=== PATIENT | female | born 1985 | race Caucasian/White ===

== ENCOUNTER → 2019-03-27 15:26 | Outpatient (CLI) | payer OTHER, SELFPAY ==
--- NOTE | 2019-03-27 15:00 | EMB_PTH ---
PATIENT: AMY VERDE LOC: [facility] U#:[id number] AGE/SX: 39/F ROOM: RE03/27/[address]: Bethany Cordoba CNM : 1985 BED: DIS: SPEC #: [id number] RECD: 03/27/19 17:52 STATUS: EMERITA LOKESH #: [id number] SHARATH: 03/27/19 15:[address]: Bethany Cordoba DEPT: SURGICAL PATHOLOGY RECD BY: Sherwin Elizabeth Tissues: Endometrium, NOS Procedures: Surgery Specimen Level IV HEADER OPERATION: Endometrial biopsy PRE-OP DIAGNOSIS: N93.9 TISSUE SUBMITTED: Endometrial biopsy MICROSCOPIC DIAGNOSIS Endometrium, biopsy: Simple hyperplasia without atypia. AM:aleksandar 03/29/19 MICROSCOPIC DESCRIPTION Slides are reviewed. GROSS DESCRIPTION Received in fixative is one container labeled with the patient's name and designated EM biopsy. The specimen consists of multiple fragments of hemorrhagic soft tissue mixed with mucoid tissue that in aggregate measure 4 x 3 x 0.3 cm. The entire specimen is submitted in two cassettes. / SJ:rg 03/28/19 TC:5 CPT: 76141
[2019-03-27 17:58] LABS: Hematocrit 40.4 % (37-47); Hemoglobin 12.4 g/dL (12.0-15.0); Mean Corp Hgb Conc 30.7 g/dL (32-36); Mean Corpuscular Hgb 25.5 pg (27.0-32.0); Mean Platelet Vol. 10.7 fl (6.2-12.0); Platelet Count 308 K/mm3 (150-450); RBC Distribution Width CV 15.9 % (11.6-14.6); RBC Distribution Width SD 47.8 fl (35.1-43.9); Red Blood Count 4.87 M/mm3 (4.2-5.4); White Blood Count 9.4 K/mm3 (4.4-11.0)
[2019-03-28 11:31] LABS: T4 Free Direct 0.95 ng/dL (0.76-1.46)
== END ==
PROVIDERS: Visit Provider Advanced Practice Midwife
DX: N93.9 Abnormal uterine and vaginal bleeding, unspecified (principal); E03.9 Hypothyroidism, unspecified
CPT/HCPCS: 36415; 84439; 84443; 84481; 85027; 88305

== ENCOUNTER 2019-09-23 08:29 | Day surgery (SDC) | payer OTHER, SELFPAY ==
--- NOTE | 2019-09-19 16:30 | EKG12_ITS ---
Test Reason : PRE-OPERATIVE Blood Pressure : / mmHG Vent. Rate : 065 BPM Atrial Rate : 065 BPM P-R Int : 118 ms QRS Dur : 090 ms QT Int : 394 ms P-R-T Axes : 020 028 014 degrees QTc Int : 409 ms Normal sinus rhythm with sinus arrhythmia Normal ECG Confirmed by CATRACHITA MAHMOOD, SALVADOR ([id number]), department editor GLORIA GUADARRAMA ([id number]) on 09/23/2019 11:02:58 AM Referred By: Monty Jim Confirmed By:SALVADOR DOMÍNGUEZ MD
[2019-09-19 16:52] LABS: Hematocrit 42.9 % (37-47); Hemoglobin 13.4 g/dL (12.0-15.0); Mean Corp Hgb Conc 31.2 g/dL (32-36); Mean Corpuscular Hgb 26.4 pg (27.0-32.0); Mean Corpuscular Volume 84.6 fL (81-99); Mean Platelet Vol. 10.5 fl (6.2-12.0); Platelet Count 304 K/mm3 (150-450); RBC Distribution Width CV 16.8 % (11.6-14.6); RBC Distribution Width SD 51.6 fl (35.1-43.9); Red Blood Count 5.07 M/mm3 (4.2-5.4); White Blood Count 8.8 K/mm3 (4.4-11.0)
[2019-09-19 18:04] LABS: Creatinine, Serum 0.77 mg/dL (0.55-1.02); EST Glomerular Filtration Rate 90 mL/min (>60); Est Glom Filt Rate - Afr Amer 109 mL/min (>60); Thyroid Stim Hormone (TSH) 4.82 uIU/mL (0.358-3.74)
[2019-09-20 09:29] LABS: Anion Gap 6 (5-15); BUN 13 mg/dL (7-18); BUN/Creat Ratio 16.9 RATIO (10-20); Calcium,Total 8.8 mg/dL (8.5-10.1); Chloride 112 mmol/L (98-107); Glucose 94 mg/dL (74-106); Sodium Level 142 mmol/L (136-145)
[2019-09-20 16:24] LABS: Free T3 2.6 pg/mL (2.18-3.98); T4 Free Direct 1.25 ng/dL (0.76-1.46)
--- NOTE | 2019-09-22 21:31 | PCM.HP.BLA ---
History and Physical Date of Admission: 09/23/19 Surgical History and Physical Date: 09/22/2019 Name: JENNY MOLINA Age: 33 Date of : 1985 Jenny Molina, a 33 year old female 2 0 0 0 2, presents for RAVH/BS on September 23, 2019 at 11:00. -- Abnormal Uterine Bleeding; Simple EM Hyperplasia -- Long, heavy menses which have been getting worse. Some last for weeks with one running into the next one. Hx of DVT likely from OCPs. Menorrhagia which began months ago. and has been present months. It is located in the Uterus. Jenny characterizes it to be to the back. Severity is increasing; Additional comments are: EMBx shows simple EM hyperplasia; unable to take hormones as had DVT from OCP; pelvic u/s normal. MEDICATIONS HISTORY: Current medications prescribed by our practice are: 1. Synthroid 100 mcg tablet, One pill by mouth once a day ALLERGIES: Sulfa (Sulfonamide Antibiotics), Intolerance-unknown, Latex, Rash, Doxycycline and Nausea Infections - Chicken pox Illnesses - depression and obesity Accidents - None Hospitalizations - blood clots and Childbirth Review of Systems: GENERAL - Denies fever, or chills SKIN - Denies skin changes EYES - Denies visual changes EARS - Denies difficulty hearing NOSE - Denies nasal congestion or bleeding MOUTH - Denies sore throat or difficulty swallowing NECK - Denies pain or swelling RESPIRATORY - Denies shortness of breath or wheezing CARDIOVASCULAR - Denies palpitations or chest pain GASTROINTESTINAL - Denies nausea, vomiting, diarrhea, constipation GENITOURINARY - Denies dysuria, frequency of urination, incontinence of urine MUSCULOSKELETAL - Denies joint or muscle pain NEUROLOGICAL - Denies localized numbness or weakness PSYCHIATRIC - Denies depression or anxiety ENDOCRINE - Denies heat or cold intolerance, weight loss or gain HEMATO-IMMUNOLOGIC - Denies excessive bleeding with cuts SOCIAL HISTORY: Alcohol Use - occasionally Smoking - Never Diet - no special diet Lifestyle - moderate stress lifestyle and Exercise - walking and sev times weekly Seat Belt Use - always Employer - [employer] 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 Illicit Drug Use - denies use of street drugs Sexual Activity - Hours Worked - 3 12 h shifts 7p -7a Spouse-Sig Other Name - Stephen Molina Spouse-Sig Other 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 , in 2003 and 2007 2. T and A, 1991 3. 2015 [employer] PHYSICAL EXAM BP- 136/72 Sitting, Right arm, large cuff Weight- 402.0 lbs Height- 66 inch BMI:65.02 CONSTITUTIONAL - NAD, well nourished, and well developed and obese SKIN - No rash, lesions, or ulcers HEENT - Normocephalic, PERRLA, EOMI NECK - No nodes, no nuchal rigidity and thyroid normal size and texture LYMPH NODES - Palpation of lymph nodes in neck and groins within normal limits LUNGS - CTA x2 without wheezes, crackles or rales CARDIAC - Regular rate and rhythm without rubs, murmurs, or gallops ABDOMEN - Without hepatosplenomegaly, distention, masses, rebound, or guarding; normal bowel sounds; no hernias EXTREMITIES - No edema or calf tenderness NEUROLOGICAL - Cranial nerves II-XII grossly intact PSYCHIATRIC - A and O to time, place, person, mood and affect ASSESSMENT/PLAN: 1. Simple Endometrial Hyperplasia Wo Atypia Discussed options for treatment and desires to proceed with RAVH/BS. Discussed RBAs and all questions answered. Also discussed possibility of laparotomy if unable to complete with robot. Plan Lovenox for 1 month after surgery.
[2019-09-23] VITALS (15 sets, daily range): BP systolic 99–126; BP diastolic 55–93; PULSE 49–89; RESP 16–18; TEMP 36.2–37.3; O2SAT 61–100; BMI 65.7
--- NOTE | 2019-09-23 | HYST_PTH ---
PATIENT: AMY VERDE LOC: [facility] U#:[id number] AGE/SX: 33/F ROOM: RE09/23/[address]: Dr. Monty Jim MD : 1985 BED: DIS: 09/24/2019 SPEC #: [id number] RECD: 09/23/19 13:50 STATUS: EMERITA CAMPA #: [id number] SHARATH: 09/23/19 00:[address]: Monty Jim DEPT: SURGICAL PATHOLOGY RECD BY: Rod Oro ENTERED: 09/24/19 07:45 SP TYPE: HYSTERECT OTHR DR: MD Dr. Gilmar Irwin MD Tissues: Uterus, NOS Procedures: Surgery Specimen Level V HEADER OPERATION: Lap robotic hysterectomy, bilateral salpingectomy PRE-OP DIAGNOSIS: Simple endometrial hyperplasia with atypia TISSUE SUBMITTED: Uterus and bilateral fallopian tubes MICROSCOPIC DIAGNOSIS Uterus, hysterectomy: Cervix - mild chronic inflammation. Endometrium - simple hyperplasia without atypia. Myometrium - no pathologic change. Right and left fallopian tubes - no pathologic change. AM:aleksandar 09/25/19 COMMENT Case has been reviewed in consultation with Dr. De Leon who concurs with the above diagnosis. IDC:SJ MICROSCOPIC DESCRIPTION Slides are reviewed. GROSS DESCRIPTION Received in fixative is one container labeled with the patient's name and designated uterus and bilateral fallopian tubes. The specimen consists of a hysterectomy specimen consisting of uterus with cervix and attached bilateral fallopian tubes. The uterus with cervix weighs 61 gm and measures 10 x 5 x 3.5 cm. The serosal surface is swan, glistening. The ectocervical mucosa is unremarkable. The external os is slit-like in contour. The endocervical canal measures 4 cm in length and the endocervical mucosa is swan, glistening and unremarkable. The triangular endometrial cavity measures 4.5 cm in length and up to 2 cm in width. The endometrium is swan, glistening without any mass lesion and measures 0.1 cm in thickness. Sections of the uterine wall do not reveal any mass lesion and it measures up to 1.5 cm in thickness. The right fallopian tube measures 7.5 cm in length and 0.5 cm in diameter. The fimbrial end is identified. Sections reveal unremarkable cut surfaces. Also, a section reveals in the proximal portion a coiled metallic device consistent with Essure device. The left fallopian tube is similar appearance to right and measures 5 cm in length and 0.5 cm in diameter and also reveals a coiled metallic device consistent with Essure device. Plexiglas Former sections are submitted in ten cassettes as follows: 1 - anterior cervix, 2 - posterior cervix, 3-5 - anterior uterine wall, 6-8 - posterior uterine wall (entire endometrium is submitted), 9 - right fallopian tube, 10 - left fallopian tube. / RICHARD:aleksandar 09/24/19 TC: 5 CPT: 93359
[2019-09-23 09:01] LABS: Internal QC Validated? YES +Cl - CLEAR BKGD; Pregnancy, Urine Negative Negative
[2019-09-23] MEDS: Lactated Ringers 1,000 ML 100 ML IV ×2 (09:15→09:18)
--- NOTE | 2019-09-23 09:20 | OP.PCM_ITS ---
Report of Operation Date of Procedure: 09/23/19 Pre-Operative Diagnosis: Abnormal Uterine Bleeding; Simple EM Hyperplasia Post-Operative Diagnosis: Abnormal Uterine Bleeding; Simple EM Hyperplasia Surgery/Procedure Performed:: Robotic Assisted Vaginal Hysterectomy and Brannon ateral Salpingectomy Description of Surgical Findings:: 10 cm uterus with normal-appearing fallopian tubes and ovaries. Evidence of prior with bladder adhered to the anterior portion of the uterus. manager mechanical maintenance: Nick Díaz Type of Anesthesia:: General - Endotracheal Anesthesiologist: Dante Ahumada Specimen's removed: Uterus and bilateral fallopian tubes Drains: Fully to straight drain Estimated Blood Loss (mL): Minimal Fluids Replaced: Crystalloid Description of Procedure: Surgeon: Monty Jim MD, FACOG Indication: This is a 33 year old patient who has been having problems with heavy periods and simple hyperplasia. She is unable to take hormonal medications due to history of deep vein thrombosis and refuses an IUD. Conservative measures have not been helpful. The patient has been counseled regarding the risks, benefits and alternatives of this procedure including the possibility of bleeding, infection, and injury to surrounding structures such as bowel bladder and all questions were answered. She understands that if BSO is needed that she will need to be on HRT for an indefinite period of time. Procedure: Pt taken to the operating room where, after induction of general anesthesia, the patient was prepped and draped in the usual sterile fashion and placed on a non-slip Huggy-u-vac device. Trendelenburg test was satisfactory. Bladder was drained of urine with a latex free Frausto catheter which was left in place. Using this ski slope retractor, the anterior cervix grasped and cervix was dilated to about 3-4 mm. Uterus sounded to 12 cms. 0-Vicryl suture was placed at the 3:00 and 9:00 position of the cervix. A small [employer] Quality Assurance Analyst Uterine Manipulator was then placed in the uterus and attention was turned to the laparoscopic portion of the procedure. Ropivocaine 0.5% was injected approximately 2-3 cm superior to the umbilicus and an 8 mm robotic camera port was introduced directly with intraperitoneal p lacement confirmed with CO2 insufflation. 8 mm robotic side ports were introduced under direct visualization approximately 11 cm lateral and 2 cm inferior to the umbilical port. A 5 mm left upper quadrant port was introduced and airseal insufflation with CO2 was started. The above findings were noted. Robot was docked without difficulty and attention turned to the robotic portion of the procedure. Approximately 30 cc of Ropivicaine was used. Bilateral infundibulopelvic ligaments/mesosalpinx were ligated with 35 lazo bipolar coagulation to the level of the round ligament. The posterior aspect of the cervix was identified and then opened for about 1 cm using 25 watt monopolar cautery. Bladder flap was opened and divided to the level of the round ligaments using monopolar cautery. Progressive bites were then ligated on each side of the cervix with 35 lazo bipolar cautery to the uterine arteries. The anterior vaginal mucosa was entered and cervix circumscribed with monopolar caut ade. Uterus and attached tubes were removed through the vagina. Vaginal cuff was closed first with 0-Vicryl Donald stitches placed at each angle followed by closure of the mid-cuff with 0-Monocryl V-lock suture in two layers. Pelvis was copiously irrigated with saline. Robot was undocked and trocars were removed with as much gas as possible. Incisions were closed with 4-0 Monocryl subcuticular sutures and incisions covered with steri-strips. The patient tolerated the procedure well and was taken to the recovery room in satisfactory condition. Sponge, instruments and needle counts were all correct. There were no apparent complications of the surgery. Cefotetan 2 gms IV was given prior to the procedure. Grafts/Implants Used: None - Complications None - Admit VTE Documentation VTE Present on Admission: Yes VTE Mechan Device Prophylaxis: SCD's VTE Pharm Prophylaxis ordered?: Yes
[2019-09-23] MEDS: Ropivacaine 0.5% 30 ML Vial (11:00)
--- NOTE | 2019-09-23 13:08 | DCINST_ITS ---
Discharge Diet: No Restrictions Discharge Activity: Return to Normal Activity, May Not Drive - while taking narcotic pain medications., May Shower, May Take a Tub Bath May resume sexual activity in: 6-8 weeks Call your doctor if your incision/area has: Continuous Slow Oozing, Sudden Inc reased Bleeding, Increased Pain/ Swelling, Increased Redness, Foul Smelling Discharge Call your doctor if you observe: Fever of 101 or Higher, Inability to urinate, Inability to have a bowel movement, Using more than one pad per hour Allergies/Adverse Reactions: Allergies doxycycline Allergy (Verified 09/23/19 08:57) Vomiting latex Allergy (Verified 09/23/19 08:57) Rash morphine Allergy (Verified 09/23/19 08:57) Itching Sulfa (Sulfonamide Antibiotics) Allergy (Verified 09/23/19 08:57) PT UNSURE OF REACTION Medications to take at Discharge Ibuprofen 800 mg PO PRN PRN 09/18/19 Levothyroxine [Synthroid] 100 mcg PO DAILY 09/18/19 Docusate Sodium [Colace] 100 mg PO BID PRN PRN #60 cap 09/23/19 Enoxaparin Sodium [Lovenox] 40 mg SQ DAILY 7 Days #14 syringe 09/23/19 Oxycodone [Oxyir] 5 mg PO Q6H PRN PRN 7 Days #20 tablet 09/23/19 The following prescriptions were given: Docusate Sodium [Colace] 100 mg PO BID PRN PRN #60 cap PRN Reason: Constipation Transmission Status: Pending to [facility] Enoxaparin Sodium [Lovenox] 40 mg SQ DAILY 7 Days #14 syringe Transmission Status: Pending to [facility]48 Oxycodone [Oxyir] 5 mg PO Q6H PRN PRN 7 Days #20 tablet PRN Reason: Pain Score 6-10/10 Transmission Status: Sent to [facility]48 Orders to be completed after discharge: Basic Metabolic Profile (BMP) Time Frame: 09/18/19, Facility: [facility], Location: Laboratory Thyroid Stim Hormone (TSH) Time Frame: 09/18/19, Facility: [facility], Location: Laboratory Primary Care Physician: Gilmar Lentz MD [Primary Care Provider] - Test Results: Test results from this visit will be discussed in further detail at your follow- up appointment, if applicable. Please Follow Up With: Monty Jim MD When: 2-3 weeks
[2019-09-23] MEDS: oxyCODONE 5 MG Tablet PO (17:42)
[2019-09-23] MEDS: Ketorolac 30 MG/ML Syringe IV (17:42)
[2019-09-23] MEDS: 0.9% Saline Lock 10 ML Syringe IV ×2 (17:42→21:31)
[2019-09-23] MEDS: Acetaminophen 500 MG Tablet 1000 MG PO (17:42)
[2019-09-23] MEDS: Enoxaparin 40 MG/0.4 ML Syringe SC ×2 (17:43→21:45)
[2019-09-23] MEDS: Dextrose 5%-Lactated Ringers 1,000 ML 150 ML IV (17:46)
[2019-09-23] MEDS: HYDROmorphone 1 MG/ML Syringe 0.5 MG IV (21:31)
[2019-09-24] MEDS: Dextrose 5%-Lactated Ringers 1,000 ML 150 ML IV ×2 (00:07→06:32)
[2019-09-24] MEDS: 0.9% Saline Lock 10 ML Syringe IV ×4 (00:08→11:56)
[2019-09-24] MEDS: Ketorolac 30 MG/ML Syringe IV ×3 (00:08→11:56)
[2019-09-24] MEDS: HYDROmorphone 1 MG/ML Syringe 0.5 MG IV ×2 (01:34→08:14)
[2019-09-24 03:51] VITALS: BP 105/55; PULSE 63; RESP 16; TEMP 36.9; O2SAT 99
[2019-09-24] MEDS: Levothyroxine 100 MCG Tablet PO (05:49)
[2019-09-24 06:17] LABS: Hematocrit 37.2 % (37-47); Hemoglobin 11.9 g/dL (12.0-15.0); Mean Corpuscular Volume 84.4 fL (81-99); Mean Platelet Vol. 11.1 fl (6.2-12.0); Platelet Count 270 K/mm3 (150-450); Red Blood Count 4.41 M/mm3 (4.2-5.4); White Blood Count 14.4 K/mm3 (4.4-11.0)
[2019-09-24] MEDS: oxyCODONE 5 MG Tablet PO ×2 (06:35→13:50)
[2019-09-24] MEDS: Docusate Sodium 100 MG Capsule PO (06:35)
[2019-09-24 06:53] LABS: Creatinine, Serum 0.87 mg/dL (0.55-1.02); EST Glomerular Filtration Rate 78 mL/min (>60); Est Glom Filt Rate - Afr Amer 95 mL/min (>60); Estimated Creatinine Clearance 84.49 ml/min
[2019-09-24 07:12] VITALS: O2SAT 94
[2019-09-24] MEDS: Enoxaparin 40 MG/0.4 ML Syringe SC (08:18)
--- NOTE | 2019-09-24 08:54 | PN.OBGYN_ITS ---
Subjective: Patient without complaints. Tolerating diet well. Positive flatus. Minimal vaginal bleeding noted. Only complaint is some pressure from Frausto catheter which remains in place. Objective: Wounds are clean, dry, intact. Good urine output. Hemoglobin and creatinine okay. - Physical Exam Vitals/I&O's: Vital Signs Temp Pulse Resp BP Pulse Ox 98.4 F 63 16 105/55 L 94 09/24/19 03:51 09/24/19 03:51 09/24/19 03:51 09/24/19 03:51 09/24/19 07:12 Oxygen Flow Rate (L/min) 2 Oxygen Delivery Method Room Air Weight: 407 lb 6.628 oz Body Mass Index (BMI) 65.7 Intake and Output for Last 24 Hours 09/22/19 09/23/19 09/24/19 23:59 23:59 23:59 Intake Total 2500 / 3100 2815.0 / 2815.0 Output Total 425 / 825 650 / 650 Balance 2075 / 2275 2165.0 / 2165.0 Laboratory Results 09/23/19 08:56: Urine Test Negative 09/24/19 06:12: WBC 14.4 H, RBC 4.41, Hgb 11.9 L, Hct 37.2, MCV 84.4, MCH 27.0, MCHC 32.0, RDW Std Deviation 53.0 H, RDW Coeff of Kevan 17.0 H, Plt Count 270, MPV 11.1 09/24/19 06:12: Creatinine 0.87, Estim Creat Clear Calc 84.49, Est GFR (MDRD) Af Amer 95, Est GFR (MDRD) Non-Af 78 Current Medications Acetaminophen (Tylenol) 1,000 mg PO Q8H PRN PRN PRN Reason: Pain Score 1-3/10 or Fever Last Admin: 09/23/19 17:42 Dose: 1,000 mg Documented by: Docusate Sodium (Colace) 100 mg PO BID PRN PRN PRN Reason: CONSTIPATION Last Admin: 09/24/19 06:35 Dose: 100 mg Documented by: Enoxaparin Sodium (Lovenox) 40 mg SC BID ERWIN Last Admin: 09/24/19 08:18 Dose: 40 mg Documented by: Hydromorphone HCl (Dilaudid Inj) 0.5 mg IV Q3H PRN PRN PRN Reason: Pain Score 4-10/10 Last Admin: 09/24/19 08:14 Dose: 0.5 mg Documented by: Dextrose/Lactated Ringer's () 1,000 mls @ 150 mls/hr IV .Q6H40M [facility] Last Admin: 09/24/19 06:32 Dose: 150 mls/hr Documented by: Ketorolac Tromethamine (Toradol (Bkc)) 30 mg IV Q6H [facility] Stop: 09/28/19 18:01 Last Admin: 09/24/19 05:47 Dose: 30 mg Documented by: Levothyroxine Sodium (Synthroid) 100 mcg PO DAILY@0600 [facility] Last Admin: 09/24/19 05:49 Dose: 100 mcg Documented by: Ondansetron HCl (Zofran) 4 mg IV Q4H PRN PRN PRN Reason: NAUSEA Oxycodone HCl (Oxyir) 5 mg PO Q4H PRN PRN PRN Reason: Pain Score 4-10/10 Last Admin: 09/24/19 06:35 Dose: 5 mg Documented by: Simethicone (Mylicon) 80 mg PO [facility] Last Admin: 09/24/19 08:18 Dose: 80 mg Documented by: Sodium Chloride () 10 - 40 ml IV UD PRN PRN Reason: SALINE FLUSH Last Admin: 09/24/19 05:46 Dose: 10 ml Documented by: Medical Necessity - Tobacco Use Smoking Status: Never smoker Tobacco Use: Non-smoker Assessment/Plan Doing well postoperative day #1 status post robotic assisted vaginal hysterectomy and bilateral salpingectomy. Will discontinue Frausto and released to home when able to void on own.
[2019-09-24 10:00] VITALS: BP 130/57; PULSE 62; RESP 16; TEMP 36.7; O2SAT 100
== END 2019-09-24 13:59 | disposition home or self-care (01) ==
LOC: SDC 08:31 → AC 08:32 → MS3 10:53
PROVIDERS: Anesthesiology; PCP Family Medicine; Referring Provider Obstetrics & Gynecology; Visit Provider Obstetrics & Gynecology
PROC: 0UT90ZZ Resection of Uterus, Open Approach (ICD-10-PCS; CPT 58552; principal; 2019-09-23 10:30)
DX: N85.01 Benign endometrial hyperplasia (principal); N72 Inflammatory disease of cervix uteri; N93.9 Abnormal uterine and vaginal bleeding, unspecified; N92.0 Excessive and frequent menstruation with regular cycle; Z11.59 Encounter for screening for other viral diseases; E07.9 Disorder of thyroid, unspecified; F32.9 Major depressive disorder, single episode, unspecified; E66.9 Obesity, unspecified; Z68.44 Body mass index [BMI] 60.0-69.9, adult; Z79.01 Long term (current) use of anticoagulants; Z79.899 Other long term (current) drug therapy; Z86.718 Personal history of other venous thrombosis and embolism
CPT/HCPCS: 00944; 58552; S2900; 36415; 80048; 81025; 82565; 84439; 84443; 84481; 85027; 85610; 85730; 86850; 86900; 86901; 87635; 88307; 93005; 99251; G2023; J7120; A4216; G0463; J2405; U0003

== ENCOUNTER 2019-09-30 17:40 | Observation (INO) | payer OTHER, SELFPAY ==
[2019-09-23 15:50] VITALS: BMI 65.7
[2019-09-30 17:42] VITALS: BP 155/97; PULSE 118; RESP 16; TEMP 36.8; O2SAT 97; BMI 66.9
[2019-09-30 19:56] LABS: Color, Urine Yellow (Yellow); Glucose, Dipstick Normal (Normal); Ketone-Dipstick 5 mg/dl (Negative); Leukocyte Esterase-Dipstick 100 /ul (Negative); Nitrite-Dipstick Negative (Negative); Occult Blood-Urine 50 /ul (Negative); Protein-Dipstick 100 mg/dl (Negative); Specific Gravity, Urine 1.025 (1.002-1.030); Urine Bilirubin Dipstick Negative (Negative); Urine Clarity Sl. Cloudy (Clear); Urine Urobilinogen 1 mg/dl (Normal)
[2019-09-30 20:03] LABS: Bacteria 1+ /hpf (None Seen); Mucous, Urine RARE /hpf (<or=2+); Squamous Epithelial Cells - UA 5-10 SEEN /hpf (5-10); White Blood Cells 5-10 SEEN /hpf (0-5)
[2019-09-30 20:04] LABS: Red Blood Cells-Urine 0-5 SEEN /hpf (0-5)
[2019-09-30 20:06] LABS: Absolute Lymphocyte Count 2.13 X10^3/uL (0.83-4.51); Absolute Neutrophil Count 8.6 X10^3/uL (2.0-7.7); Basophil# 0.04 X10^3/uL; Basophil% 0.3 % (0-1); Eosinophil# 0.14 X10^3/uL; Eosinophils% 1.2 % (0-5); Hematocrit 45.3 % (37-47); Hemoglobin 14.1 g/dL (12.0-15.0); Lymphocyte # 2.13 X10^3/ul (4.0); Lymphocyte % 17.6 % (19-41); Mean Corp Hgb Conc 31.1 g/dL (32-36); Mean Corpuscular Hgb 26.4 pg (27.0-32.0); Mean Corpuscular Volume 84.8 fL (81-99); Mean Platelet Vol. 10.2 fl (6.2-12.0); Monocyte# 1.16 X10^3/uL; Monocyte% 9.6 % (0-10); NRBC Flagged by Analyzer 0 % (0-5); Neutrophil # 8.59 X10^3/uL (2.7-7.7); Neutrophil % 70.8 % (47-70); Platelet Count 270 K/mm3 (150-450); RBC Distribution Width CV 17.2 % (11.6-14.6); RBC Distribution Width SD 51.2 fl (35.1-43.9); Red Blood Count 5.34 M/mm3 (4.2-5.4); White Blood Count 12.1 K/mm3 (4.4-11.0)
[2019-09-30 20:27] LABS: Anion Gap 5 (5-15); BUN 15 mg/dL (7-18); BUN/Creat Ratio 15.9 RATIO (10-20); Calcium,Total 9.2 mg/dL (8.5-10.1); Chloride 104 mmol/L (98-107); Creatinine, Serum 0.94 mg/dL (0.55-1.02); EST Glomerular Filtration Rate 71 mL/min (>60); Est Glom Filt Rate - Afr Amer 86 mL/min (>60); Glucose 86 mg/dL (74-106); Sodium Level 136 mmol/L (136-145)
[2019-09-30 21:00] VITALS: BP 145/75; PULSE 89; RESP 16; TEMP 36.9; O2SAT 100
--- NOTE | 2019-09-30 21:12 | CT_ITS ---
STUDY: CT ABDOMEN AND PELVIS WITH CONTRAST REASON FOR EXAM: Female, 33 years old. Hysterectomy on September 22. Now with fever and lower abdominal pain. History of DVT and pulmonary emboli. RADIATION DOSAGE (If Supplied By Facility): CTDIvol = ( 25.39 ) mGy, DLP = ( 1324.13 ) mGycm TECHNIQUE: Transaxial images were obtained from the dome of the diaphragm to the symphysis pubis without oral contrast. IV 100mL Isovue-370 was administered. Sagittal and coronal images were reconstructed. Individualized dose optimization techniques were used for this CT. COMPARISON: None. FINDINGS: The visualized lung bases are unremarkable. The visualized portions of the heart are within normal limits. Normal liver. Normal gallbladder and extrahepatic biliary system. Normal spleen. Normal pancreas. Normal bilateral adrenal glands. Normal right kidney. Normal left kidney. Normal visualized stomach. Normal small intestine. Colon appears grossly normal. There is some stranding about the sigmoid colon thought to be postsurgical changes from the recent hysterectomy. There is no colonic wall thickening. There is non-visualization of the appendix. Normal abdominal aorta. Normal inferior vena cava. There is left periaortic lymphadenopathy.. The largest node measures 0.9 x 1.2 x 2.3 cm. Normal urinary bladder. There is a irregular area of low attenuation along the between the sigmoid colon and dome of the urinary bladder with associated stranding. This measures 5.3 x 2.1 x 2.5 cm. The uterus is absent. Both ovaries are visualized on image 94 series 2. There is minimal stranding. Otherwise unremarkable. No free air or free fluid is seen within the peritoneal cavity. Large umbilical hernia of omental fat. The abdominal wall is otherwise unremarkable. There are diffuse degenerative changes of the visualized lumbar spine. CT/Abdomen/Pelvis W IV Cont ONLY IMPRESSION: 1. Irregular fluid density mass in the uterine bed suspicious for postop abscess. There is associated stranding involving the overlying sigmoid colon and otherwise normal-appearing ovaries. 2. Umbilical hernia of omental fat. 3. Degenerative changes of the lumbar spine. 4. Otherwise normal CT of the abdomen and pelvis. Electronically Signed: Evan Johnson DO at 21:40 EDT Tel [phone], Service support ,
--- NOTE | 2019-09-30 22:20 | ED.VIS.GEN ---
History of Present Illness Chief Complaint: Fever Informant: Patient, Family Narrative: Patient is postop day 7 from laparoscopic hysterectomy by Dr. Jim. She developed a fever yesterday but states she had subjective fever the day before. She has been having some lower abdominal pain. Normal bowel movements. No urinary symptoms. She spoke with Dr. Jim and was sent to the emergency department for evaluation. Past Medical History - Allergies and Home Meds Allergies/Adverse Reactions: Allergies doxycycline Allergy (Verified 09/30/19 17:46) Vomiting latex Allergy (Verified 09/30/19 17:46) Rash morphine Allergy (Verified 09/30/19 17:46) Itching Sulfa (Sulfonamide Antibiotics) Allergy (Verified 09/30/19 17:46) PT UNSURE OF REACTION vancomycin Allergy (Verified 09/30/19 17:46) Itching Primary Care Physician: Gilmar Lentz MD [Primary Care Provider] - Smoking Status: Never smoker Review of Systems General: Reports: Chills, Fever. Denies: Sweats Eyes: Denies: Visual changes - bilaterally, Diplopia ENT: Denies: Rhinorrhea, Sore throat Cardiovascular: Denies: Chest pain, Palpitations Respiratory: Denies: Dyspnea, Cough, Dyspnea on exertion Gastrointestinal: Reports: Abdominal pain. Denies: Nausea, Vomiting, Diarrhea, Melena, Hematochezia Genitourinary: Denies: Dysuria, Hematuria, Frequency Musculoskeletal: Denies: Back pain, Extremity Pain Skin: Denies: Rash, Wounds Neurological: Denies: Headache, Weakness, Numbness Physical Exam Vital Signs/Narrative: Vital Signs Temp Pulse Resp BP Pulse Ox 09/30/19 21:00 98.5 F 89 16 145/75 H 100 Inital Vital Signs reviewed: Yes General: Well nourished, Well developed, Obese, No Acute Distress Head: Normocephalic, Atraumatic Eyes: Perrl, EOMI ENT: Moist mucous membranes, No rhinorrhea Neck: Supple, Nontender Cardiovascular: Regular rate, Regular rhythm, No murmurs Respiratory: No distress, CTA bilaterally, Chest nontender Abdomen: Soft, Nondistended, Normal bowel sounds, Tender, - - Body habitus precludes competent examination of the abdomen. The surgical incisions are clean dry and intact. Back: Nontender, Normal Inspection Extremities: Nontender, No edema Skin: Normal color, No rash Neurological: Alert, Oriented x3, Cranial nerves II-XII grossly intact, Normal Strength, Normal Sensation Psychological: Normal affect, Normal Mood Diagnostic/Tx/Re-eval Clinical Impression(s) from Imaging Studies Abdomen/Pelvis CT 09/30/19 21:12 IMPRESSION: 1. Irregular fluid density mass in the uterine bed suspicious for postop abscess. There is associated stranding involving the overlying sigmoid colon and otherwise normal-appearing ovaries. 2. Umbilical hernia of omental fat. 3. Degenerative changes of the lumbar spine. 4. Otherwise normal CT of the abdomen and pelvis. Electronically Signed: Evan Johnson DO at 21:40 EDT Tel [phone], Service support , Laboratory Last Values WBC 12.1 K/mm3 (4.4-11.0) H 09/30/19 19:40 RBC 5.34 M/mm3 (4.2-5.4) 09/30/19 19:40 Hgb 14.1 g/dL (12.0-15.0) 09/30/19 19:40 Hct 45.3 % (37-47) 09/30/19 19:40 MCV 84.8 fL (81-99) 09/30/19 19:40 MCH 26.4 pg (27.0-32.0) L 09/30/19 19:40 MCHC 31.1 g/dL (32-36) L 09/30/19 19:40 RDW Std Deviation 51.2 fl (35.1-43.9) H 09/30/19 19:40 RDW Coeff of Kevan 17.2 % (11.6-14.6) H 09/30/19 19:40 Plt Count 270 K/mm3 (150-450) 09/30/19 19:40 MPV 10.2 fl (6.2-12.0) 09/30/19 19:40 Immature Gran % (Auto) 0.500 % (0.0-0.9) 09/30/19 19:40 Neut % (Auto) 70.8 % (47-70) H 09/30/19 19:40 Lymph % (Auto) 17.6 % (19-41) L 09/30/19 19:40 [place] % (Auto) 9.6 % (0-10) 09/30/19 19:40 Eos % (Auto) 1.2 % (0-5) 09/30/19 19:40 Baso % (Auto) 0.3 % (0-1) 09/30/19 19:40 Absolute Neuts (auto) 8.6 X10^3/uL (2.0-7.7) H 09/30/19 19:40 Absolute Lymphs (auto) 2.13 X10^3/uL (0.83-4.51) 09/30/19 19:40 Nucleated RBC % 0 % (0-5) 09/30/19 19:40 Sodium 136 mmol/L (136-145) 09/30/19 19:40 Potassium 4.0 mmol/L (3.5-5.1) 09/30/19 19:40 Chloride 104 mmol/L (98-107) 09/30/19 19:40 Carbon Dioxide 27.0 mmol/L (21.0-32.0) 09/30/19 19:40 Anion Gap 5 (5-15) 09/30/19 19:40 BUN 15 mg/dL (7-18) 09/30/19 19:40 Creatinine 0.94 mg/dL (0.55-1.02) 09/30/19 19:40 Estim Creat Clear Calc 78.20 ml/min 09/30/19 19:40 Est GFR (MDRD) Af Amer 86 mL/min (>60) 09/30/19 19:40 Est GFR (MDRD) Non-Af 71 mL/min (>60) 09/30/19 19:40 BUN/Creatinine Ratio 15.9 RATIO (10-20) 09/30/19 19:40 Glucose 86 mg/dL (74-106) 09/30/19 19:40 Calcium 9.2 mg/dL (8.5-10.1) 09/30/19 19:40 Urine Color Yellow (Yellow) 09/30/19 19:45 Urine Clarity Sl. Cloudy (Clear) 09/30/19 19:45 Urine pH 5.0 (5.0 - 8.0) 09/30/19 19:45 Ur Specific [place] 1.025 (1.002-1.030) 09/30/19 19:45 Urine Protein 100 mg/dl (Negative) H 09/30/19 19:45 Urine Glucose (UA) Normal mg/dl (Normal) 09/30/19 19:45 Urine Ketones 5 mg/dl (Negative) H 09/30/19 19:45 Urine Occult Blood 50 /ul (Negative) H 09/30/19 19:45 Urine Nitrite Negative (Negative) 09/30/19 19:45 Urine Bilirubin Negative mg/dL (Negative) 09/30/19 19:45 Urine Urobilinogen 1 mg/dl (Normal) H 09/30/19 19:45 Ur Leukocyte Esterase 100 /ul (Negative) H 09/30/19 19:45 Urine RBC 0-5 SEEN /hpf (0-5) 09/30/19 19:45 Urine WBC 5-10 SEEN /hpf (0-5) 09/30/19 19:45 Ur Squamous Epith Cells 5-10 SEEN /hpf (5-10) 09/30/19 19:45 Urine Bacteria 1+ /hpf (None Seen) 09/30/19 19:45 Urine Mucus RARE /hpf (<or=2+) 09/30/19 19:45 - Medical Decision Making Based on heart rate greater than 90 and white count greater than 12 and a identified infection the patient meets sepsis criteria. She received Zosyn after blood cultures were drawn. Case was discussed with Dr. Jim and plan is admission. Sepsis re-evaluation was performed ED Disposition - Plan for ED Patient: Diagnosis: Post-operative wound abscess, Sepsis Referrals: Gilmar Lentz MD [Primary Care Provider] -
[2019-09-30] MEDS: Ondansetron 4 MG/2 ML Vial IV (22:37)
[2019-09-30] MEDS: HYDROmorphone 1 MG/ML Syringe IV (22:38)
[2019-09-30 22:45] VITALS: BP 128/82; PULSE 93; RESP 18; TEMP 37.3; O2SAT 96
[2019-09-30 23:00] LABS: AST(SGOT) 28 U/L (15-37); Alanine Aminotransfer ALT/SGPT 62 U/L (13-56); Albumin, Serum 3.7 g/dL (3.2-5.0); Alkaline Phosphatase 163 U/L (45-117); Bilirubin, Direct 0.21 mg/dL (0.00-0.30); Globulin 5.3 g/dL (2.2-4.2)
[2019-09-30 23:04] LABS: International Normalized Ratio 1.1; Prothrombin Time (Protime)PT. 14.1 SECONDS (11.7-14.9)
[2019-09-30 23:05] LABS: Partial Thromboplast Time 31.3 Seconds (24.1-36.2)
[2019-09-30 23:11] VITALS: BMI 64.1
[2019-09-30 23:13] LABS: Lactic Acid 0.8 mmol/L (0.4-1.9)
[2019-09-30 23:17] VITALS: BMI 64.1
[2019-09-30 23:26] VITALS: BP 145/86; PULSE 95; RESP 18; TEMP 37.1; O2SAT 95
[2019-10-01] MEDS: Dext 5%-0.45% NS 1,000 ML 75 ML IV ×2 (00:20→12:14)
[2019-10-01] MEDS: Ibuprofen 600 MG Tablet PO ×3 (02:52→21:08)
[2019-10-01 04:23] VITALS: BP 122/72; PULSE 87; RESP 18; TEMP 37.5; O2SAT 97
[2019-10-01] MEDS: Acetaminophen 500 MG Tablet 1000 MG PO ×2 (05:25→23:53)
[2019-10-01 07:30] VITALS: BP 119/70; PULSE 86; RESP 18; TEMP 36.9; O2SAT 97
--- NOTE | 2019-10-01 08:46 | PCM.HP.BLA ---
History and Physical Date of Admission: 09/30/19 Jenny Molina, a 33 year old female 2 0 0 0 2, presented to the emergency room with fevers of 101 ?F at home. Patient is status post robotic assisted vaginal hysterectomy about a week ago. She has been doing well except for intermittent pressure and occasional shooting pain when she voids. CT scan showed a 4 x 3 x 2 cm area near the vaginal cuff consistent with abscess. Given this, it was decided to admit the patient for IV antibiotics. MEDICATIONS HISTORY: Current medications prescribed by our practice are: 1. Synthroid 100 mcg tablet, One pill by mouth once a day ALLERGIES: Sulfa (Sulfonamide Antibiotics), Intolerance-unknown, Latex, Rash, Doxycycline and Nausea Infections - Chicken pox Illnesses - depression and obesity Accidents - None Hospitalizations - blood clots and Childbirth Review of Systems: GENERAL - Denies fever, or chills SKIN - Denies skin changes EYES - Denies visual changes EARS - Denies difficulty hearing NOSE - Denies nasal congestion or bleeding MOUTH - Denies sore throat or difficulty swallowing NECK - Denies pain or swelling RESPIRATORY - Denies shortness of breath or wheezing CARDIOVASCULAR - Denies palpitations or chest pain GASTROINTESTINAL - Denies nausea, vomiting, diarrhea, constipation GENITOURINARY - Denies dysuria, frequency of urination, incontinence of urine MUSCULOSKELETAL - Denies joint or muscle pain NEUROLOGICAL - Denies localized numbness or weakness PSYCHIATRIC - Denies depression or anxiety ENDOCRINE - Denies heat or cold intolerance, weight loss or gain HEMATO-IMMUNOLOGIC - Denies excessive bleeding with cuts SOCIAL HISTORY: Alcohol Use - occasionally Smoking - Never Diet - no special diet Lifestyle - moderate stress lifestyle and Exercise - walking and sev times weekly Seat Belt Use - always Employer - [employer] [place] 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 Illicit Drug Use - denies use of street drugs Sexual Activity - Hours Worked - 3 12 h shifts 7p -7a Spouse-Sig Other Name - Stephen Molina Spouse-Sig Other 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 , in 2003 and 2007 2. T and A, 1991 3. 2016 Essure Coils 4. Robotic assisted vaginal hysterectomy and bilateral salpingectomy on September 23, 2019, for simple endometrial hyperplasia PHYSICAL EXAM BP- 136/72 Sitting, Right arm, large cuff Weight- 402.0 lbs Height- 66 inch BMI:65.02 CONSTITUTIONAL - NAD, well nourished, and well developed and obese; afebrile since admission SKIN - No rash, lesions, or ulcers HEENT - Normocephalic, PERRLA, EOMI NECK - No nodes, no nuchal rigidity and thyroid normal size and texture LYMPH NODES - Palpation of lymph nodes in neck and groins within normal limits LUNGS - CTA x2 without wheezes, crackles or rales CARDIAC - Regular rate and rhythm without rubs, murmurs, or gallops ABDOMEN - Without hepatosplenomegaly, distention, masses, rebound, or guarding; normal bowel sounds; no hernias. Wounds show no evidence of infection; no abdominal distention or tenderness is noted EXTREMITIES - No edema or calf tenderness NEUROLOGICAL - Cranial nerves II-XII grossly intact PSYCHIATRIC - A and O to time, place, person, mood and affect ASSESSMENT/PLAN: Small post operative abscess versus urinary tract infection. Will admit for IV antibiotics, specifically Zosyn. Discussed with patient that we could discharge her to home after 24 hours of being afebrile on oral antibiotic.
--- NOTE | 2019-10-01 09:11 | NURSING ---
SPOKE WITH DR VELASCO REGARDING STRONGER PAIN MEDICATION FOR PT. MD STATES DOES NOT WANT TO ORDER ANYTHING STRONGER @ THIS POINT. CONTINUE CURRENT PLAN OF CARE.
[2019-10-01] MEDS: Enoxaparin 40 MG/0.4 ML Syringe SC (10:28)
[2019-10-01 11:30] VITALS: BP 126/78; PULSE 64; RESP 18; TEMP 36.6; O2SAT 97
[2019-10-01 20:19] VITALS: BP 137/86; PULSE 95; RESP 18; TEMP 36.8; O2SAT 95
[2019-10-01] MEDS: 0.9% Saline Lock 10 ML Syringe IV (21:05)
[2019-10-01 23:29] VITALS: BP 158/70; PULSE 92; RESP 20; TEMP 36.8; O2SAT 98
[2019-10-02] MEDS: Dext 5%-0.45% NS 1,000 ML 75 ML IV (01:50)
[2019-10-02 03:15] VITALS: BP 128/70; PULSE 85; RESP 18; TEMP 36.8; O2SAT 96
[2019-10-02] MEDS: Ibuprofen 600 MG Tablet PO ×2 (03:21→16:10)
[2019-10-02] MEDS: Acetaminophen 500 MG Tablet 1000 MG PO (05:53)
[2019-10-02 06:07] LABS: Absolute Lymphocyte Count 2.07 X10^3/uL (0.83-4.51); Basophil# 0.03 X10^3/uL; Basophil% 0.3 % (0-1); Eosinophil# 0.17 X10^3/uL; Eosinophils% 1.8 % (0-5); Hematocrit 37.2 % (37-47); Hemoglobin 11.5 g/dL (12.0-15.0); Lymphocyte # 2.07 X10^3/ul (4.0); Lymphocyte % 22.3 % (19-41); Mean Corp Hgb Conc 30.9 g/dL (32-36); Mean Corpuscular Hgb 26.4 pg (27.0-32.0); Mean Corpuscular Volume 85.5 fL (81-99); Monocyte# 0.95 X10^3/uL; Monocyte% 10.2 % (0-10); NRBC Flagged by Analyzer 0 % (0-5); Neutrophil # 6.03 X10^3/uL (2.7-7.7); Neutrophil % 64.9 % (47-70); Platelet Count 247 K/mm3 (150-450); RBC Distribution Width CV 16.4 % (11.6-14.6); RBC Distribution Width SD 51.5 fl (35.1-43.9); Red Blood Count 4.35 M/mm3 (4.2-5.4); White Blood Count 9.3 K/mm3 (4.4-11.0)
--- NOTE | 2019-10-02 09:20 | PN.OBGYN_ITS ---
Patient Problems: Active and Suspected Problems Post-operative wound abscess (Acute) Sepsis (Acute) Subjective: Patient without complaints. Pain a bit less but still not severe. Denies any fevers. Some discomfort when she voids but less than yesterday. Some vaginal bleeding when up to restroom but not heavy. Pressure slightly less than yesterday. - Physical Exam Vitals/I&O's: Vital Signs Temp Pulse Resp BP Pulse Ox 98.2 F 85 18 128/70 H 96 10/02/19 03:15 10/02/19 03:15 10/02/19 03:15 10/02/19 03:15 10/02/19 03:15 Oxygen Delivery Method Room Air Weight: 397 lb 4.368 oz Body Mass Index (BMI) 64.1 Intake and Output for Last 24 Hours 09/30/19 10/01/19 10/02/19 23:59 23:59 23:59 Intake Total 100 / 100 2182.5 / 2182.5 1500 / 1500 Output Total 2024 / 2024 425 / 425 Balance 100 / 100 157.5 / 157.5 1075 / 1075 Laboratory Results 10/02/19 05:55: WBC 9.3, RBC 4.35, Hgb 11.5 L, Hct 37.2, MCV 85.5, MCH 26.4 L, MCHC 30.9 L, RDW Std Deviation 51.5 H, RDW Coeff of Kevan 16.4 H, Plt Count 247, MPV 10.0, Immature Gran % (Auto) 0.500, Neut % (Auto) 64.9, Lymph % (Auto) 22.3, [place] % (Auto) 10.2 H, Eos % (Auto) 1.8, Baso % (Auto) 0.3, Absolute Neuts (auto) 6.0, Absolute Lymphs (auto) 2.07, Nucleated RBC % 0 Current Medications Acetaminophen (Tylenol) 1,000 mg PO Q6H PRN PRN PRN Reason: TEMP >100, pain (1-10) Last Admin: 10/02/19 05:53 Dose: 1,000 mg Documented by: Enoxaparin Sodium (Lovenox) 40 mg SC DAILY ERWIN Last Admin: 10/01/19 10:28 Dose: 40 mg Documented by: Sodium Chloride () 250 mls @ 15 mls/hr IV .[id number] PRN PRN Reason: Saline Flush Dextrose/Sodium Chloride () 1,000 mls @ 75 mls/hr IV .[id number] ERWIN Last Admin: 10/02/19 01:50 Dose: 75 mls/hr Documented by: Piperacillin Sod/Tazobactam (Sod 3.375 gm/ Sodium Chloride) 50 mls @ 12.5 mls/hr IV Q8 ERWIN Last Admin: 10/02/19 05:43 Dose: 12.5 mls/hr Documented by: Ibuprofen (Motrin) 600 mg PO Q6H PRN PRN PRN Reason: PAIN (1-12/13) Last Admin: 10/02/19 03:21 Dose: 600 mg Documented by: Ondansetron HCl (Zofran) 4 mg IV Q4H PRN PRN PRN Reason: nausea Sodium Chloride () 10 - 40 ml IV UD PRN PRN Reason: SALINE FLUSH Last Admin: 10/01/19 21:05 Dose: 10 ml Documented by: Medical Necessity - Tobacco Use Smoking Status: Never smoker Tobacco Use: Non-smoker Assessment/Plan All Active Problems Post-operative wound abscess (Acute) Sepsis (Acute) Doing well without fever since admission. Pain less. White count last. Will discontinue Zosyn and released to home on Omnicef. Instructed to call with increasing pain or fevers. Otherwise to follow-up in the office in 1 week. Encouraged ambulation and continue Lovenox daily until completely ambulatory. Discussed possible need for CT-guided drainage of small abscess if fevers per sist after she is home.
[2019-10-02 09:23] VITALS: BP 136/76; PULSE 81; RESP 18; TEMP 36.4; O2SAT 97
--- NOTE | 2019-10-02 09:26 | DCINST_ITS ---
Discharge Diet: No Restrictions Discharge Activity: Return to Normal Activity, May Not Drive - while taking narcotic pain medications., May Shower, May Take a Tub Bath May resume sexual activity in: - - 6 weeks after surgery Call your doctor if your incision/area has: Continuous Slow Oozing, Sudden Increased Bleeding, Increased Pain/ Swelling, Increased Redness, Foul Smelling Discharge Call your doctor if you observe: Fever of 101 or Higher, Inability to urinate, Inability to have a bowel movement, Using more than one pad per hour Allergies/Adverse Reactions: Allergies doxycycline Allergy (Verified 09/30/19 17:46) Vomiting latex Allergy (Verified 09/30/19 17:46) Rash morphine Allergy (Verified 09/30/19 17:46) Itching Sulfa (Sulfonamide Antibiotics) Allergy (Verified 09/30/19 17:46) PT UNSURE OF REACTION vancomycin Allergy (Verified 09/30/19 17:46) Itching Medications to take at Discharge Levothyroxine [Synthroid] 100 mcg PO DAILY 09/18/19 Docusate Sodium [Colace] 100 mg PO BID PRN PRN #60 cap 09/23/19 Acetaminophen [Tylenol Extra Strength] 1,000 mg PO Q6H PRN PRN 09/30/19 Enoxaparin Sodium [Lovenox] 40 mg SQ DAILY 09/30/19 Oxycodone HCl 1 tab PO Q6H PRN PRN 09/30/19 Cefdinir [Omnicef [equiv]] 300 mg PO Q12H #14 cap 10/02/19 The following prescriptions were given: Cefdinir [Omnicef [equiv]] 300 mg PO Q12H #14 cap Transmission Status: Pending to [id number] Primary Care Physician: Gilmar Lentz MD [Primary Care Provider] - Test Results: Test results from this visit will be discussed in further detail at your follow- up appointment, if applicable. Please Follow Up With: Monty Jim MD When: 1 week as scheduled
[2019-10-02] MEDS: Enoxaparin 40 MG/0.4 ML Syringe SC (09:35)
--- NOTE | 2019-10-02 11:29 | PHA.DC.MC ---
Pharmacy Service has performed discharge medication reconciliation and counseling for this patient. 1. CEFDINIR 300MG PO Q12H X 7 DAYS The patient's discharge medication list was reviewed for discrepancies and discrepancies were resolved. Home Medications Levothyroxine [Synthroid] 100 mcg PO DAILY 09/18/19 Docusate Sodium [Colace] 100 mg PO BID PRN PRN #60 cap 09/23/19 Acetaminophen [Tylenol Extra Strength] 1,000 mg PO Q6H PRN PRN 09/30/19 Enoxaparin Sodium [Lovenox] 40 mg SQ DAILY 09/30/19 Oxycodone HCl 1 tab PO Q6H PRN PRN 09/30/19 Cefdinir [Omnicef [equiv]] 300 mg PO Q12H #14 cap 10/02/19 The patient was counseled on the following discharge medications and changes in medications for homegoing were reviewed. The Reason for Use, instructions for use, and potential side effects were reviewed for all new medications. The patient's questions regarding all of their medications were answered. The patient was able to verbally demonstrate an understanding of their discharge medications. Patient counseled by pharmacy managerAnton.
[2019-10-02 14:10] VITALS: BP 130/63; PULSE 85; RESP 18; TEMP 36.8; O2SAT 98
--- NOTE | 2019-10-02 19:57 | NURSING ---
miriann completed at 1440- ordered for last dose to be completed in 30 min
== END 2019-10-02 16:53 | disposition home or self-care (01) ==
LOC: ED 20:55 → MS3 23:47
PROVIDERS: Admitting Provider Obstetrics & Gynecology; Emergency Provider Emergency Medicine; PCP Family Medicine; Referring Provider Obstetrics & Gynecology; Visit Provider Obstetrics & Gynecology
DX: A41.9 Sepsis, unspecified organism (principal); T81.49XA Infection following a procedure, other surgical site, initial encounter; Y83.8 Other surgical procedures as the cause of abnormal reaction of the patient, or of later complication, without mention of misadventure at the time of the procedure; E03.9 Hypothyroidism, unspecified; F32.9 Major depressive disorder, single episode, unspecified; E66.9 Obesity, unspecified; Z79.899 Other long term (current) drug therapy; Z68.44 Body mass index [BMI] 60.0-69.9, adult
CPT/HCPCS: 36415; 74177; 80048; 80076; 81001; 83605; 85025; 85610; 85730; 87040; 96361; 96365; 96366; 96372; 96375; 99218; 99284; J7050; Q9967; A4216; G0378; J2405; J7799

== ENCOUNTER 2019-12-27 15:10 | Outpatient (RCR) | payer OTHER, SELFPAY ==
--- NOTE | 2019-12-27 16:00 | HP.PTEVAL_ITS ---
Patient's Visit Information AMY VERDE is a 34 year old F referred to Physical Therapy by MIKE SMITH with a diagnosis of Back pain. Date of Evaluation: 12/27/19 Physical Therapist: Adam Herrera, PT, ATC - Visit Plan Frequency: 1x/Week Duration: 2 Weeks Plan: Educated pt about postural awareness and REIL. 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 Pt reports she didnt immediately feel the pain on the transfer, but notes by the time she drove home her back had completely tightened up on her and she was in severe pain. Pt notes no PMHx of LBP of this magnitude. Pt notes no tingling or numbness down her legs at this time. Pt reports her pain has improved overall over the past 2 weeks secondary to taking pain meds and muscle relaxers. Pt notes descending stairs and laying in one position for too long increases her pain at this time. 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 0/10 pain at this time - Pain LBP Pain Intensity (Out of 10): 0 - Objective Neuro: B LE sensation is WNL to lgiht touch. MMT: B LE's 5/5 throughout. ROM: Pt is minimally limited with R SB and ext. Flex and L SB WNL. Repeated movements: REIL and T/S ext decreased pain - Goals Goal 1:: I with HEP Goal Time Frame: 1 Week - Rehabilitation Potential Physical Therapy Diagnosis: Pt has mid and LBP secondary to T/S disc derrangement Rehabilitation Potential: Good - Anticipated Interventions Patient/Client Instruction: Educate patient on: Condition, Plan of Care For the Purpose of:: To improve self management Therapeutic Exercise to Include: Postural training, Dynamic Lumbar Stabilization For the Purpose of:: To decrease pain, To improve muscle performance and motor function Thank you for the opportunity to evaluate your patient. For Medicare and Medicare HMO plans, please review the plan of care and approve it. It will need to be FAXED BACK to us at [phone] for Medicare purposes. For Medicare only, by signing this I certify the plan of care. Please let me know if there are questions or concerns regarding this plan of care. Physician Signature: Date:
--- NOTE | 2020-02-04 14:09 | HP.PTDCSUM ---
It has been my pleasure to treat AMY VERDE referred by MIKE SMITH, with the diagnosis of Back pain for a total of 1 visit(s). Discharge Date: Please see the following information for a summary of their discharge status. LBP Pain Intensity (Out of 10): 0 Goal 1:: I with HEP Plan: Educated pt about postural awareness and REIL. Pt to either followup of Discharge in a couple weeks pending pain level at that time If there are questions or concerns regarding this patient's physical therapy, please feel free to call me at [phone]. Thank you for the referral of this patient. Sincerely, Adam Herrera, PT, ATC
== END 2019-12-27 19:00 | disposition home or self-care (01) ==
LOC: PT 15:10
PROVIDERS: PCP Family Medicine
DX: M62.830 Muscle spasm of back (principal); S29.012D Strain of muscle and tendon of back wall of thorax, subsequent encounter
CPT/HCPCS: 97161

== ENCOUNTER 2020-03-24 19:21 | Outpatient (RCR) | payer SELFPAY | END 2020-04-05 23:59 | LOC: EMPH 19:21 | PROVIDERS: PCP Family Medicine; Visit Provider Internal Medicine Infectious Disease | DX: Z03.818 Encounter for observation for suspected exposure to other biological agents ruled out (principal) | CPT/HCPCS: 87426 ==

== ENCOUNTER → 2020-06-18 15:54 | Outpatient (CLI) | payer OTHER, SELFPAY ==
[2020-06-18 17:37] LABS: ALB/GLOB Ratio 0.9 RATIO (0.9-2.4); AST(SGOT) 26 U/L (15-37); Alanine Aminotransfer ALT/SGPT 58 U/L (13-56); Albumin, Serum 3.7 g/dL (3.2-5.0); Alkaline Phosphatase 134 U/L (45-117); Anion Gap 0 (5-15); BUN 13 mg/dL (7-18); Calcium,Total 9.1 mg/dL (8.5-10.1); Chloride 107 mmol/L (98-107); Cholesterol 150 mg/dL (200); Creatinine, Serum 0.81 mg/dL (0.55-1.02); EST Glomerular Filtration Rate 85 mL/min (>60); Est Glom Filt Rate - Afr Amer 102 mL/min (>60); Globulin 4.3 g/dL (2.2-4.2); Glucose 82 mg/dL (74-106); High Density Lipoprotein 48 mg/dL; Potassium 4.2 mmol/L (3.5-5.1); Sodium Level 138 mmol/L (136-145); Triglycerides 133 mg/dL; Very Low Density Lipoprotein 27 mg/dL (5-40)
[2020-06-19 15:04] LABS: T4 Free Direct 0.99 ng/dL (0.76-1.46)
== END ==
LOC: LAB 15:57
PROVIDERS: PCP Family Medicine
DX: E03.9 Hypothyroidism, unspecified (principal); R25.2 Cramp and spasm
CPT/HCPCS: 36415; 80053; 80061; 84439; 84443

== ENCOUNTER 2021-01-29 13:28 | Outpatient (CLI) | payer OTHER, SELFPAY ==
[2021-01-29 13:47] VITALS: BMI 65.5
[2021-01-29] MEDS: 0.9% Saline Lock 10 ML Syringe IV (13:47)
[2021-01-29 14:24] VITALS: BP 140/81; PULSE 98; RESP 16; TEMP 37.2; O2SAT 97
[2021-01-29 15:20] VITALS: BP 144/92; PULSE 93; RESP 16; TEMP 36.9; O2SAT 99
== END 2021-01-29 15:24 | disposition home or self-care (01) ==
LOC: MS3OUT 13:28 → MS3 13:29
PROVIDERS: PCP Family Medicine; Referring Provider Nurse Practitioner Adult Health; Visit Provider Nurse Practitioner Adult Health
DX: Z23 Encounter for immunization (principal); U07.1 COVID-19
CPT/HCPCS: J7050; M0245; Q0245; A4216

== ENCOUNTER → 2021-10-15 | Outpatient (CLI) | payer OTHER, SELFPAY ==
--- NOTE | 2021-10-15 08:13 | US_ITS ---
STUDY: ABDOMINAL ULTRASOUND - RIGHT UPPER QUADRANT REASON FOR VISIT: Female, 36 years old SEVERE OBESITY TECHNIQUE: Ultrasound evaluation of the right upper quadrant was performed with real-time and static hinson-scale imaging. TECHNICAL QUALITY: Adequate. COMPARISON: CT abdomen and pelvis with contrast 09/30/2019. FINDINGS: Liver: The liver measures 21.0 cm. Increase echogenicity of liver parenchyma due to fatty infiltration. The bile ducts are within normal limits. There is hepatic color flow. The direction of portal flow is hepatopetal. There is no demonstrated mass lesion. Gallbladder: Normal distended gallbladder. The gallbladder wall measures 3 mm. There is a negative sonographic Werner''s sign. There is no pericholecystic fluid. There are a few calcified gallstones with distal acoustic shadowing. Common Bile Duct (C.B.D.): The common bile duct measures 4 mm. Pancreas: The pancreatic tail is poorly visualized due to overlying gas and obesity. Normal visualized portions of the pancreas. Normal echogenicity of the visualized portions of the pancreas. No suspicious mass or cyst in the visualized portions of pancreas. The pancreatic duct is not dilated. Right Kidney: Normal size of the right kidney. The right kidney measures 12.6 x 7.0 x 5.9 cm. Normal renal cortex. The right cortex measures 2.0 cm. There is no demonstrated renal mass or cyst. There is no right hydronephrosis. US/Abdomen Limited IMPRESSION: 1. A few gallstones but negative sonographic Werner''s sign and no pericholecystic fluid. 2. Hepatomegaly with hepatic steatosis. 3. No acute abnormality. Electronically Signed: Shubham Nieves MD at 15:42 EDT ,
== END | disposition home or self-care (01) ==
PROVIDERS: PCP Family Medicine
DX: E66.01 Morbid (severe) obesity due to excess calories (principal); Z68.44 Body mass index [BMI] 60.0-69.9, adult
CPT/HCPCS: 76705; 93005

== ENCOUNTER → 2021-11-26 | Outpatient (CLI) | payer OTHER, SELFPAY ==
--- NOTE | 2021-11-26 07:31 | RAD_ITS ---
EXAM: XR CHEST, 2 VIEWS CLINICAL INDICATION: OBESITY TECHNIQUE: Frontal and lateral views of the chest. This report was created using [employer] report generation technology. COMPARISON: None. FINDINGS: LUNGS AND PLEURAL SPACES: Normal. No consolidation or edema. No pneumothorax. No effusion. HEART: Normal heart size. MEDIASTINUM: Central airways are unremarkable. No mediastinal or hilar mass. BONES/JOINTS: No acute abnormality. SOFT TISSUES: Normal. RAD/Chest PA and Lateral IMPRESSION: No acute cardiopulmonary disease. Electronically Signed: Ray Oswald MD at 8:32 EDT ,
[2021-11-26 08:28] LABS: Absolute Lymphocyte Count 2.89 X10^3/uL (0.83-4.51); Absolute Neutrophil Count 4.6 X10^3/uL (2.0-7.7); Basophil# 0.05 X10^3/uL; Basophil% 0.6 % (0-1); Eosinophil# 0.17 X10^3/uL; Hematocrit 42.1 % (37-47); Hemoglobin 13.6 g/dL (12.0-15.0); Lymphocyte # 2.89 X10^3/ul (0.83-4.51); Lymphocyte % 34.4 % (19-41); Mean Corp Hgb Conc 32.3 g/dL (32-36); Mean Corpuscular Hgb 29.6 pg (27.0-32.0); Mean Corpuscular Volume 91.5 fL (81-99); Mean Platelet Vol. 10.2 fl (6.2-12.0); Monocyte# 0.68 X10^3/uL; Monocyte% 8.1 % (0-10); NRBC Flagged by Analyzer 0 % (0-5); Neutrophil # 4.55 X10^3/uL (2.7-7.7); Neutrophil % 54.2 % (47-70); Platelet Count 293 K/mm3 (150-450); RBC Distribution Width CV 13.3 % (11.6-14.6); RBC Distribution Width SD 44.6 fl (35.1-43.9); White Blood Count 8.4 K/mm3 (4.4-11.0)
[2021-11-26 08:41] LABS: Hemoglobin A1c 5.5 % (3.8-5.6)
[2021-11-26 08:50] LABS: PTHIN 91.7 pg/mL (18.4-80.1)
[2021-11-26 08:55] LABS: Vitamin B12 685 pg/mL (211-911); Vitamin D,25 Hydroxy 12.3 ng/mL
[2021-11-26 09:11] LABS: ALB/GLOB Ratio 0.9 RATIO (0.9-2.4); AST(SGOT) 45 U/L (15-37); Alanine Aminotransfer ALT/SGPT 75 U/L (13-56); Albumin, Serum 3.5 g/dL (3.2-5.0); Alkaline Phosphatase 127 U/L (45-117); Anion Gap 6 (5-15); BUN 19 mg/dL (7-18); Chloride 109 mmol/L (98-107); Cholesterol 137 mg/dL (200); Creatinine, Serum 0.91 mg/dL (0.55-1.02); EST Glomerular Filtration Rate 74 mL/min (>60); Est Glom Filt Rate - Afr Amer 89 mL/min (>60); Ferritin 83 ng/mL (8-252); Globulin 4.1 g/dL (2.2-4.2); Glucose 103 mg/dL (74-106); High Density Lipoprotein 42 mg/dL; Iron 64 ug/dL (50-170); Iron Binding Capacity,Total 399 ug/dL (250-450); Potassium 4.5 mmol/L (3.5-5.1); Protein, Total 7.6 g/dL (6.4-8.2); Sodium Level 141 mmol/L (136-145); Thyroid Stim Hormone (TSH) 6.02 uIU/mL (0.358-3.74); Triglycerides 170 mg/dL; Very Low Density Lipoprotein 34 mg/dL (5-40)
[2021-12-03 09:02] LABS: Vitamin B1, Thiamine 147.9 nmol/L (66.5-200.0)
== END | disposition home or self-care (01) ==
PROVIDERS: PCP Family Medicine
DX: Z01.818 Encounter for other preprocedural examination (principal); E66.01 Morbid (severe) obesity due to excess calories; Z68.44 Body mass index [BMI] 60.0-69.9, adult
CPT/HCPCS: 36415; 71046; 80053; 80061; 82306; 82607; 82728; 82746; 83036; 83540; 83550; 83970; 84425; 84443; 85025

== ENCOUNTER 2022-11-04 13:14 | Emergency (ER) | payer OTHER, SELFPAY ==
[2022-11-04 13:16] VITALS: BP 156/98; PULSE 105; RESP 20; TEMP 36.1; O2SAT 97; BMI 61.2
--- NOTE | 2022-11-04 14:35 | EKG12_ITS ---
Test Reason : SOB Blood Pressure : / mmHG Vent. Rate : 078 BPM Atrial Rate : 078 BPM P-R Int : 136 ms QRS Dur : 084 ms QT Int : 362 ms P-R-T Axes : 021 011 -09 degrees QTc Int : 412 ms Normal sinus rhythm with sinus arrhythmia Minimal voltage criteria for LVH, may be normal variant ( R in aVL ) Inferior infarct , age undetermined Abnormal ECG When compared with ECG of 15-OCT-2021 08:35, Inverted T waves have replaced nonspecific T wave abnormality in Inferior leads Confirmed by CATRACHITA MAHMOOD, SALVADOR ([id number]), editor in chief newspaper JOCELYNE SHEPHERD ([id number]) on 12/21/2022 2:01:47 PM Referred By: Confirmed By:SALVADOR DOMÍNGUEZ MD
--- NOTE | 2022-11-04 14:35 | CT_ITS ---
EXAM: CT ANGIOGRAPHY CHEST WITHOUT AND WITH INTRAVENOUS CONTRAST CLINICAL INDICATION: Pretest probability high for PE TECHNIQUE: Helically acquired angiography images were obtained of the chest without and with intravenous contrast. CTDIvol = ( 19.74 ) mGy, DLP = ( 732.97 ) mGycm This CT exam was performed using one or more of the following dose reduction techniques: automated exposure control, adjustment of the mA and/or kV according to patient size, and/or use of iterative reconstruction technique. MIP reconstructed images were created and reviewed. CONTRAST: IV 100mL [id number] COMPARISON: No relevant prior studies available. FINDINGS: PULMONARY ARTERIES: Unremarkable. Normal in caliber. No evidence of pulmonary embolism. AORTA: Unremarkable. Normal in caliber. No evidence of dissection. GREAT VESSELS OF AORTIC ARCH: Unremarkable. Normal in caliber. No evidence of dissection. LUNGS AND PLEURAL SPACES: Unremarkable. No mass. No consolidation or edema. No pleural effusion or thickening. No pneumothorax. HEART: Cardiomegaly without pericardial effusion. No significant calcific coronary arteriolosclerosis. MEDIASTINUM: Unremarkable. No mediastinal or hilar adenopathy. Esophagus is unremarkable. No hiatal hernia. THYROID: Unremarkable. No thyroid lesions. BONES/JOINTS: Degenerative changes of spine. No unusual lytic or sclerotic lesions of bone. LIVER: Hepatic steatosis. GALLBLADDER AND BILE DUCTS: Distended gallbladder with intermediate density at the dependent portion potentially representing sludge. No inflammatory changes in the gallbladder. Ultrasound is more sensitive for the detection of the presence of gallstones if still concerned. STOMACH AND BOWEL: Gastric postsurgical changes.. CT/CTA Chest W/WO Contrast IMPRESSION: 1. No PE, pneumonia or other acute disease. 2. Ancillary findings as above. AIDOC was utilized to assist in identifying pertinent positive findings. Electronically Signed: Av Walsh MD at 17:04 EDT ,
[2022-11-04 15:05] VITALS: BP 131/85; PULSE 86; RESP 16; O2SAT 100
[2022-11-04 15:17] LABS: Absolute Lymphocyte Count 2.68 X10^3/uL (0.83-4.51); Absolute Neutrophil Count 4.9 X10^3/uL (2.0-7.7); Basophil# 0.06 X10^3/uL; Basophil% 0.7 % (0-1); Eosinophil# 0.15 X10^3/uL; Eosinophils% 1.7 % (0-5); Hematocrit 45.5 % (37-47); Hemoglobin 14.7 g/dL (12.0-15.0); Lymphocyte # 2.68 X10^3/ul (0.83-4.51); Lymphocyte % 31.2 % (19-41); Mean Corp Hgb Conc 32.3 g/dL (32-36); Mean Corpuscular Hgb 29.3 pg (27.0-32.0); Mean Corpuscular Volume 90.6 fL (81-99); Mean Platelet Vol. 11.3 fl (6.2-12.0); Monocyte# 0.75 X10^3/uL; Monocyte% 8.7 % (0-10); NRBC Flagged by Analyzer 0 % (0-5); Neutrophil # 4.91 X10^3/uL (2.7-7.7); Neutrophil % 57.4 % (47-70); Platelet Count 359 K/mm3 (150-450); RBC Distribution Width CV 13.7 % (11.6-14.6); RBC Distribution Width SD 44.2 fl (35.1-43.9); Red Blood Count 5.02 M/mm3 (4.2-5.4); White Blood Count 8.6 K/mm3 (4.4-11.0)
[2022-11-04 15:31] LABS: Anion Gap 8 (5-15); BUN 11 mg/dL (7-18); BUN/Creat Ratio 11.9 RATIO (10-20); Calcium,Total 9.5 mg/dL (8.5-10.1); Chloride 108 mmol/L (98-107); Creatinine, Serum 0.93 mg/dL (0.55-1.02); EST Glomerular Filtration Rate 72 mL/min (>60); Est Glom Filt Rate - Afr Amer 87 mL/min (>60); Estimated Creatinine Clearance 76.03 ml/min; Glucose 84 mg/dL (74-106); Potassium 3.5 mmol/L (3.5-5.1); Sodium Level 140 mmol/L (136-145)
--- NOTE | 2022-11-04 15:54 | ED.VIS.DYS ---
HPI History of Present Illness Chief Complaint: Shortness of Breath Detail of Chief Complaint: Patient developed shortness of breath while showering. Patient is recent p Informant: patient Onset/Context/Timing Onset: Today Context: sudden Timing: Intermittent and Waxes and wanes Quality: Positive for Dyspnea on exertion; Negative for Orthopnea, PND or Wheezing Current Severity: Gone Maximum Severity: Moderate Worsened by: Exertion; Not Worsened By Lying flat or Coughing Relieved by: Rest Associated Symptoms Negative for cough, rhinorrhea, post nasal drip, ear pain, fever, sore throat, subjective, chills, sweats, clear sputum, white sputum, yellow sputum or green sputum Chest Pain: Positive for None Narrative Narrative: Patient is a 37-year-old woman who had recent gastric surgery for weight loss, October 12. She was on Lovenox. She developed a IgE mediated allergic reaction. This was discontinued after 2 weeks. While showering she developed abrupt onset of shortness of breath. She has shortness of breath with minimal activity. She also complains of left calf pain. She states her left lower extremity is normally swollen in comparison to the right. She denies fever, chills night sweats. She denies rhinorrhea, congestion, postnasal drainage sore throat. She denies auditory symptoms. She denies chest pain presently or at the time she became short of breath. She denies black or maroon-colored stool. She denies rash. She localizes the pain to the proximal lateral left calf. She also points to the popliteal fossa. She states her left leg does not look any larger than normal. PE Risk Factors: Positive for Prior DVT or PE, Recent immobilization and Recent surgery; Negative for Cancer or OCP + Smoking + > 35 Prior similar symptoms: Yes Recent Illness/Hospitalization: Yes [facility] Medical History Hypothyroid Home Medications levothyroxine 100 mcg tablet 100 mcg PO DAILY hypothyroid 09/18/19 [History Last Taken 09/23/19 07:00] cyclobenzaprine 5 mg tablet 5 mg PO TID PRN muscle spams 01/29/21 [History Last Taken Unknown] Allergy/AdvReac Type Severity Reaction Status Date / Time doxycycline Allergy Vomiting Verified 11/04/22 13:15 enoxaparin [From Lovenox] Allergy Rash Verified 11/04/22 13:15 latex Allergy Rash Verified 11/04/22 13:15 morphine Allergy Itching Verified 11/04/22 13:15 Sulfa (Sulfonamide Allergy PT UNSURE Verified 11/04/22 13:15 Antibiotics) OF REACTION vancomycin Allergy Itching Verified 11/04/22 13:15 Surgical History Status post biliopancreatic diversion with duodenal switch Social History Smoking Status: Never smoker ROS ROS ED Constitutional Constitutional ED: Denies chills, fever(s), sweats or weight loss Eyes Eyes: Denies blurry vision or change in vision ENT ENT ED: Denies ear pain, rhinorrhea or sore throat Cardiovascular Cardiovascular: Reports palpitations, racing heartbeat and other Details: Patient did report palpitations and racing heart rate when she was short of breath. She states she had fast heart rate walking into the emergency department. ; Denies chest pain, orthopnea or paroxysmal nocturnal dyspnea Respiratory/Chest Respiratory/Chest: Reports dyspnea on exertion; Denies cough, dyspnea, orthopnea or paroxysmal nocturnal dyspnea Gastrointestinal Gastrointestinal: Reports abdominal pain and other Details: Patient reports postoperative pain. This pain is no different. ; Denies diarrhea, melena or vomiting Genitourinary Genitourinary ED: Denies dysuria, hematuria or urinary frequency Musculoskeletal Musculoskeletal: Denies arthralgias, back pain, myalgias or neck pain Integumentary Denies rash Neurologic Neurologic: Denies paresthesias or weakness Psychiatric Psychiatric: Reports anxiety Hematologic/Lymphatic Hematologic/Lymphatic: Denies easy bleeding or easy bruising EXAM Physical Exam Const Vital Signs: 11/04/22 13:16 11/04/22 15:05 11/04/22 16:18 Temperature 97 F L Temperature Source Temporal Pulse Rate 105 H 86 79 Respiratory Rate 20 H 16 21 H Respiratory Effort Blood Pressure 156/98 H 131/85 H 127/68 H Blood Pressure Mean 117 100 87 Pulse Ox 97 100 97 Oxygen Delivery Method Room Air Room Air Room Air 11/04/22 19:25 11/04/22 19:25 Temperature Temperature Source Pulse Rate 64 Respiratory Rate 24 H Respiratory Effort Non-Labored Short of Breath Blood Pressure 124/76 H Blood Pressure Mean 92 Pulse Ox Oxygen Delivery Method Room Air Positive well nourished, well developed and obese General Appearance ED: well developed, NAD and pallor Nutritional Appearance: obese HEENT Reports moist mucous membranes HEENT Narrative: Head is atraumatic and normocephalic. Ears are normal. Nares are patent. Posterior pharynx is normal. Eyes PERRL and EOMs intact bilaterally General Eye ED: Negative for pale conjunctiva or scleral icterus Neck no lymphadenopathy, supple, no meningeal signs and no JVD Resp normal respiratory effort and clear to auscultation bilaterally Cardio regular rhythm, S1 normal heart sound, S2 normal heart sound and no murmurs Rate: tachycardic GI non-tender, non-distended and no masses Auscultation: normoactive bowel sounds Back/Spine no CVA tenderness and normal to inspection Extremity Extremity Narrative: The left lower extremity is significantly larger than the right. Patient states this is no different than baseline. Patient has no tenderness on distribution deep venous system. There is no leg vein distention. There is no discoloration. DP and PT pulse are palpable and symmetric. Neuro oriented x3, CN's II-XII intact bilaterally and no sensory deficits noted Amber Coma Scale: document GCS findings Spontaneous Obeys Commands Oriented 15 Sensorium / Orientation: alert Motor Exam: strength 5/5 throughout Psych mental status grossly normal Skin no wounds and skin turgor normal General Skin Exam: pallor; Negative for jaundice Lesions: no lesions Rashes: no rashes MDM MDM MDM Narrative Medical decision making narrative: Patient's preperitoneal ability for PE is high. Since patient's preprobability is high D-dimer was not obtained. Patient is tachycardic, tachypneic with recent surgery complaining of rapid heart rate and dyspnea on exertion that occurred abruptly this morning. Will obtain CTA of the chest to evaluate for pulmonary embolus. This also will evaluate other potential causes. CBC was obtained to assess white count and differential. BMP to assess renal unction. History & Record Review Additional record(s) reviewed:: Prior outpatient record (Records from Dr. Monty Jim for postop infection/abscess), Prior ED visit and Prior labs Lab Data Attestation: I reviewed the patient's lab results. Lab results narrative: CBC and parenteral are no more. H&H is normal. Basic metabolic panel is normal. Labs: Laboratory Results - last 24 hr 11/04/22 15:05 WBC 8.6 RBC 5.02 Hgb 14.7 Hct 45.5 MCV 90.6 MCH 29.3 MCHC 32.3 RDW Std Deviation 44.2 H RDW Coeff of Kevan 13.7 Plt Count 359 MPV 11.3 Immature Gran % (Auto) 0.300 Neut % (Auto) 57.4 Lymph % (Auto) 31.2 Harmon % (Auto) 8.7 Eos % (Auto) 1.7 Baso % (Auto) 0.7 Absolute Neuts (auto) 4.9 Absolute Lymphs (auto) 2.68 Nucleated RBC % 0 Sodium 140 Potassium 3.5 Chloride 108 H Carbon Dioxide 24.0 Anion Gap 8 BUN 11 Creatinine 0.93 Estim Creat Clear Calc 76.03 Est GFR (MDRD) Af Amer 87 Est GFR (MDRD) Non-Af 72 BUN/Creatinine Ratio 11.9 Glucose 84 Calcium 9.5 Radiography Diagnostic Testing: Clinical Impression(s) from Imaging Studies Chest CTA 11/04/22 14:35 IMPRESSION: 1. No PE, pneumonia or other acute disease. 2. Ancillary findings as above. AIDOC was utilized to assist in identifying pertinent positive findings. Electronically Signed: Av Walsh MD at 17:04 EDT , Venous Duplex 11/04/22 17:28 IMPRESSION: Normal left lower extremity duplex venous ultrasound. Electronically Signed: Av Walsh MD at 18:16 EDT , T of the chest for PE was reviewed independently by me. Patient does appear to have PE. Awaiting formal read by radiologist. Rhythm Strip Rhythm Strip: Sinus Tach Rate: 102 Ectopy: None EKG Initial EKG: Attestation: I personally reviewed and interpreted this EKG as follows: Interpretation: Sinus Rhythm (Sinus rhythm rate of 78 with respiratory variance. MT interval 236 ms. QRS duration 84 ms. QT duration 362 ms. Morris is normal. There is evidence of LVH by voltage criteria. There is a flipped T wave in lead III which is normal variant.) Treatment and Re-Evaluation :: Since the CT was negative for any acute pulmonary or cardiovascular findings the patient has a swollen left lower extremity will obtain venous duplex study to evaluate for DVT. Of note patient was noted to have sludge in her gallbladder. She does not have symptoms concerning for biliary colic. Discharge Plan Triage Chief Complaint: Shortness of Breath ED Provider: Ej Dailey Dx/Rx/DC Orders Clinical Impression: Edema of left lower leg, Postop check, Acute dyspnea, Tachycardia Instructions: ED About Arrhythmias, ED Dyspnea Prescriptions: No Action levothyroxine 100 MCG tablet 100 mcg PO DAILY cyclobenzaprine 5 mg Tablet 5 mg PO TID PRN (Reason: muscle spams) Primary Care Provider: Cruz Bonilla Referrals: Cruz Bonilla MD [Primary Care Provider] - 3-5 Days if not improving Disposition Disposition: Home, Self Care
[2022-11-04 16:18] VITALS: BP 127/68; PULSE 79; RESP 21; O2SAT 97
--- NOTE | 2022-11-04 17:28 | US_ITS ---
EXAM: US DUPLEX LEFT LOWER EXTREMITY VEINS CLINICAL INDICATION: LT LATERAL CALF PAIN TECHNIQUE: Real-time duplex ultrasound scan of the left lower extremity veins integrating B-mode two-dimensional vascular structure, Doppler spectral analysis, color flow Doppler imaging and compression. COMPARISON: No relevant prior studies available. FINDINGS: DEEP VEINS: Unremarkable. No DVT in the visualized common femoral, femoral, proximal deep femoral or popliteal veins. The veins demonstrate normal color flow, are normally compressible, with normal phasic flow and/or augmentation response. SUPERFICIAL VEINS: Unremarkable. No thrombus in the visualized great saphenous vein. SOFT TISSUES: No acute findings. No popliteal cyst. US/Venous Duplex Imag/Limited/Uni IMPRESSION: Normal left lower extremity duplex venous ultrasound. Electronically Signed: Av Walsh MD at 18:16 EDT ,
[2022-11-04 19:25] VITALS: BP 124/76; PULSE 64; RESP 24; O2SAT 97
[2022-11-04 19:37] VITALS: BP 117/63; PULSE 72; RESP 15; O2SAT 98
== END 2022-11-04 19:38 | disposition home or self-care (01) ==
PROVIDERS: Emergency Provider Emergency Medicine; PCP Family Medicine; Visit Provider Emergency Medicine
DX: R60.0 Localized edema (principal); R00.0 Tachycardia, unspecified; R06.02 Shortness of breath; M79.662 Pain in left lower leg; Z98.84 Bariatric surgery status; E03.9 Hypothyroidism, unspecified; Z79.890 Hormone replacement therapy
CPT/HCPCS: 71275; 80048; 85025; 93005; 93971; 99284; Q9967; A4216

== ENCOUNTER → 2023-01-20 | Outpatient (CLI) | payer OTHER, SELFPAY ==
[2023-01-20 08:25] LABS: Hemoglobin 13.4 g/dL (12.0-15.0); Mean Corp Hgb Conc 31.2 g/dL (32-36); Mean Corpuscular Hgb 28.9 pg (27.0-32.0); Mean Corpuscular Volume 92.9 fL (81-99); Mean Platelet Vol. 11.8 fl (6.2-12.0); Platelet Count 252 K/mm3 (150-450); RBC Distribution Width CV 14.4 % (11.6-14.6); RBC Distribution Width SD 48.3 fl (35.1-43.9); Red Blood Count 4.63 M/mm3 (4.2-5.4); White Blood Count 6.4 K/mm3 (4.4-11.0)
[2023-01-20 09:24] LABS: ALB/GLOB Ratio 1.1 RATIO (0.9-2.4); AST(SGOT) 44 U/L (15-37); Alanine Aminotransfer ALT/SGPT 86 U/L (13-56); Albumin, Serum 3.9 g/dL (3.2-5.0); Alkaline Phosphatase 145 U/L (45-117); Anion Gap 7 (5-15); BUN 18 mg/dL (7-18); BUN/Creat Ratio 22.2 RATIO (10-20); Calcium,Total 9.2 mg/dL (8.5-10.1); Chloride 109 mmol/L (98-107); Creatinine, Serum 0.81 mg/dL (0.55-1.02); EST Glomerular Filtration Rate 84 mL/min (>60); Est Glom Filt Rate - Afr Amer 101 mL/min (>60); Ferritin 155 ng/mL (8-252); Globulin 3.7 g/dL (2.2-4.2); Glucose 81 mg/dL (74-106); Iron 46 ug/dL (50-170); Iron Binding Capacity,Total 287 ug/dL (250-450); Potassium 3.6 mmol/L (3.5-5.1); Protein, Total 7.6 g/dL (6.4-8.2); Sodium Level 141 mmol/L (136-145)
[2023-01-20 09:30] LABS: BNP,B-Type NATRIURETIC PEPTIDE 12.8 pg/mL (0-100)
[2023-01-20 09:31] LABS: Vitamin B12 1276 pg/mL (211-911); Vitamin D,25 Hydroxy 40.7 ng/mL
[2023-01-20 12:36] LABS: PTHIN 82.3 pg/mL (18.4-80.1)
[2023-01-25 18:08] LABS: Vitamin B1, Thiamine 184.1 nmol/L (66.5-200.0)
== END | disposition home or self-care (01) ==
PROVIDERS: PCP Family Medicine
DX: E66.01 Morbid (severe) obesity due to excess calories (principal); Z68.44 Body mass index [BMI] 60.0-69.9, adult; Z48.815 Encounter for surgical aftercare following surgery on the digestive system; Z98.84 Bariatric surgery status
CPT/HCPCS: 36415; 80053; 82306; 82607; 82728; 82746; 83540; 83550; 83880; 83970; 84425; 85027

== ENCOUNTER → 2023-02-22 | Outpatient (CLI) | payer OTHER, SELFPAY ==
--- NOTE | 2023-02-22 14:51 | CT_ITS ---
STUDY: CT ABDOMEN AND PELVIS WITHOUT CONTRAST REASON FOR EXAM: Female, 37 years old. INFECTION IN ABDOMEN RADIATION DOSAGE (If Supplied By Facility): CTDIvol = ( 24.18 ) mGy, DLP = ( 1274.56 ) mGycm TECHNIQUE: Transaxial images were obtained from the dome of the diaphragm to the symphysis pubis without oral contrast, and without intravenous contrast. Sagittal and coronal images were reconstructed. Individualized dose optimization techniques were used for this CT. COMPARISON: Comparison is made with prior study dated September 30, 2019. FINDINGS: The visualized lung bases are unremarkable. The visualized portions of the heart are within normal limits. Normal liver. Normal gallbladder and extrahepatic biliary system. Normal spleen. Normal pancreas. Normal bilateral adrenal glands. Normal right kidney. Normal left kidney. The patient is status post subtotal gastrectomy and gastric bypass surgery. Surgical anastomosis seen in the lower jejunal level. Normal colon. The appendix is visualized and appears normal. Normal abdominal aorta. Normal inferior vena cava. There is borderline retroperitoneal lymphadenopathy with enlarged nodes no greater than 10mm in the short axis diameter. Normal urinary bladder. There is absence of the uterus consistent with a prior hysterectomy. Normal abdominal wall. Normal osseous structures. CT/Abdomen/Pelvis without Cont IMPRESSION: Status post gastric bypass surgery. Status post hysterectomy. Sigmoid diverticulosis. Electronically Signed: Roshan Pruitt MD at 15:29 EST ,
== END | disposition home or self-care (01) ==
LOC: CT 14:49
PROVIDERS: PCP Family Medicine
DX: K65.9 Peritonitis, unspecified (principal)
CPT/HCPCS: 74176

== ENCOUNTER → 2023-07-10 | Outpatient (CLI) | payer OTHER, SELFPAY ==
--- NOTE | 2023-07-10 14:24 | US_ITS ---
STUDY: ULTRASOUND BREAST - RIGHT REASON FOR EXAM: Female, 37 years old. Palpable lump in the right breast. TECHNIQUE: Axial and longitudinal images of the RIGHT breast were performed with a high resolution ultrasound transducer. # OF IMAGES: 30 COMPARISON: Comparison is made with prior mammogram done earlier today. FINDINGS: RIGHT Breast: The lower inner quadrant of the breast was examined with ultrasound. No sonographic abnormality is seen. US/Breast Limited Unilateral IMPRESSION: No sonographic abnormality is seen. ASSESSMENT CATEGORY: BIRADS Category 1: Negative. A letter regarding these results will be sent to the patient by the facility within 30 days. Electronically Signed: Roshan Pruitt MD at 15:41 EDT ,
--- NOTE | 2023-07-10 14:24 | BI_ITS ---
MAMMOGRAPHY - BILATERAL DIAGNOSTIC REASON FOR EXAM: Female, 37 years old. Palpable lump at the 4:00 position of the right breast. Occasional nipple inversion. PERTINENT HISTORY: Mother with breast cancer. TECHNIQUE: Digital bilateral breast sharon (3D mammographic acquisition) in the CC and MLO projections. 2-D mediolateral oblique (MLO) and craniocaudad (CC) views of both breasts were obtained. CAD: Full Field Digital Mammography with Computer Added Detection was performed. COMPARISON: None. Baseline examination. FINDINGS: Breast Composition: The breasts are almost entirely fatty. There are no dominant masses or suspicious calcifications. No other significant abnormalities are identified. BI/DIAG MAMM W/CAD, BILAT IMPRESSION: Negative diagnostic mammogram. With the patient''s history of a palpable lump in the right axilla, correlation with ultrasound recommended. ASSESSMENT CATEGORY: BIRADS Category 0: Incomplete. Need additional imaging evaluation. A letter regarding these results will be sent to the patient by the facility within 30 days. Approximately 10% of breast cancers are not detected by mammography. A normal mammogram should not delay biopsy of a clinically suspicious abnormality. Electronically Signed: Roshan Pruitt MD at 15:25 EDT ,
== END | disposition home or self-care (01) ==
PROVIDERS: PCP Family Medicine; Referring Provider Obstetrics & Gynecology; Visit Provider Obstetrics & Gynecology
DX: N63.14 Unspecified lump in the right breast, lower inner quadrant (principal); Z80.3 Family history of malignant neoplasm of breast
CPT/HCPCS: 76642; 77062; 77066; G0279

== ENCOUNTER → 2024-08-13 | Outpatient (CLI) | payer OTHER, SELFPAY ==
--- NOTE | 2024-08-13 14:00 | VDLE_ITS ---
Reason For Study Reason For Study: Swelling RIGHT LEFT CFV is compressible, spontaneous, phasic, competent CFV is compressible, spontaneous, phasic, competent, and demonstrates normal augmentation. and demonstrates normal augmentation. FV is compressible, spontaneous, phasic, competent FV is compressible, spontaneous, phasic, competent and demonstrates normal augmentation. and demonstrates normal augmentation. POP V is compressible, spontaneous, phasic, competent POP V is compressible, spontaneous, phasic, competent and demonstrates normal augmentation. and demonstrates normal augmentation. T/P Trunk is compressible. T/P Trunk is compressible. PTV is compressible. PTV is compressible. RT PerV is compressible. LT PerV is compressible. SFJ is INCOMPETENT and measures 0.60 cm. SFJ is INCOMPETENT and measures 0.69 cm. GSV proximal thigh measures 0.54x0.67 cm. GSV proximal thigh measures 0.57x0.65 cm. GSV at knee measures 0.50x0.61 cm. GSV at knee measures 0.58x0.62 cm. GSV is competent throughout. GSV above knee is competent. SSV mid calf is competent and measures 0.33x0.35 cm. GSV below knee is INCOMPETENT for greater than 0.5 Procedure seconds. Exam performed in department. SSV mid calf is competent and measures 0.34x0.34 cm. This is a venous duplex using B-mode, color flow and INCOMPETENT field marketing associate 5cm above medial malleolus spectral Doppler. measuring 0.35cm. The exam was diagnostic. ASV proximal calf is INCOMPETENT for greater than 0.5 Patient was scanned in reverse Trendelenburg position seconds and measures 0.37x0.49 cm. during reflux assessment. VL/Venous Duplex US - Brannon Extrem Interpretation Summary Deep veins of the bilateral lower extremities are patent and compressible segme ntally. There is no evidence of bilateral lower extremity deep vein thrombosis. The bilateral great saphenous veins appea r patent and compressible segmentally. Positive for reflux in the right saphenofemoral junction. Positive for reflux in the left saphenofemoral junction, great saphenous vein b elow the knee, accessory saphenous vein in the calf, field marketing associate vein in the calf. Ordering Physician: Teresita Shields Referring Physician: Teresita Shields Performed By: Emmanuelle Cordova RVT
== END | disposition home or self-care (01) ==
LOC: CVS 14:00
PROVIDERS: PCP Family Medicine; Referring Provider Physician Assistant; Visit Provider Physician Assistant
DX: R60.0 Localized edema (principal); Z86.718 Personal history of other venous thrombosis and embolism
CPT/HCPCS: 93970